=== PATIENT | female | born 1970 | race Caucasian/White ===

== ENCOUNTER 2018-01-04 11:11 | Outpatient (CLI) | payer BC | END 2018-01-04 11:12 | disposition home or self-care (01) | LOC: BICMAMMO 11:11 | PROVIDERS: ATTEND Student in an Organized Health Care Education/Training Program | DX: Z12.31 Encounter for screening mammogram for malignant neoplasm of breast (principal) | CPT/HCPCS: 77063; 77067 ==

== ENCOUNTER 2019-04-07 08:48 | Outpatient (CLI) | payer BC ==
--- NOTE | 2019-04-07 09:53 | MMO ---
Right Breast MAMMO Unilat Diag DDI RT+ADRIANE. CLINICAL HISTORY: Patient is 49 years old and is seen for diagnostic exam. The patient has no family history of breast cancer. The patient has no personal history of cancer. VIEWS: The views performed were: right craniocaudal with tomosynthesis; right mediolateral oblique with tomosynthesis; and right mediolateral with tomosynthesis. FILMS COMPARED: The present examination has been compared to prior imaging studies performed at [facility] on 03/18/2019, and at [facility] on 01/01/2017, 01/04/2018 and 04/07/2019. This study has been interpreted with the assistance of computer-aided detection. MAMMOGRAM FINDINGS: The breast is heterogeneously dense, which could obscure a lesion on mammography. There is an equal density, oval mass with circumscribed margins seen in the right breast at 9 o'clock. The mass was shown to be a cyst on ultrasound. The addional abnormality in the right breast at screening does not persist. There are no suspicious masses, suspicious calcifications, or new areas of architectural distortion. IMPRESSION: THERE IS NO MAMMOGRAPHIC EVIDENCE OF MALIGNANCY. A ROUTINE FOLLOW-UP MAMMOGRAM IN 1 YEAR IS RECOMMENDED. THE RESULTS OF THIS EXAM WERE SENT TO THE PATIENT. ACR BI-RADS Category 2 - Benign finding MAMMOGRAPHY NOTE: 1. A negative mammogram report should not delay a biopsy if a dominant of clinically suspicious mass is present. 2. Approximately 10% to 15% of breast cancers are not detected by mammography. 3. Adenosis and dense breasts may obscure an underlying neoplasm. Reported by: JUAN RAMON FRIEDMAN MD Electonically Signed: [id number]
--- NOTE | 2019-04-07 10:13 | ULT ---
LIMITED RIGHT BREAST ULTRASOUND: DATE: 04/07/2019. PROVIDED CLINICAL HISTORY: Abnormal mammogram. FINDINGS: Limited sonographic interrogation was performed of the right breast at the 9 o'clock position demonst rating a simple cyst corresponding to the mammogram finding. IMPRESSION: BIRADS category 2 - benign findings. Annual screening mammography is recommended. POS: OFF
--- NOTE | 2019-04-07 10:23 | RAD ---
LEFT KNEE TWO VIEWS: HISTORY: Unilateral primary osteoarthritis left knee. FINDINGS: Moderate degenerative changes are seen, most prominent in the lateral tibiofemoral compartment and th e patellofemoral compartment. No fracture, dislocation or bony destruction is identified. No joint ef fusion is seen. IMPRESSION: Left knee osteoarthritis. POS: TPC
== END 2019-04-07 08:49 | disposition home or self-care (01) ==
LOC: BICMAMMO 08:48
PROVIDERS: ATTEND Student in an Organized Health Care Education/Training Program
DX: N63.10 Unspecified lump in the right breast, unspecified quadrant (principal); M17.12 Unilateral primary osteoarthritis, left knee
CPT/HCPCS: G0279

== ENCOUNTER 2019-06-06 14:13 | Outpatient (CLI) | payer BC ==
--- NOTE | 2019-06-06 15:14 | BD ---
DEXA BONE DENSITY SCAN: DATE: 06/06/2019. HISTORY: Postmenopausal female undergoing screening for osteoporosis. Lumbar Spine: BMD (g/cm2) L1 1.173 T-Score: 1.7 L2 1.213 T-Score: 1.7 L3 1.331 T-Score: 2.2 L4 1.472 T-Score: 3.7 L1-L4 1.309 T-Score: 2.4 Femoral Neck: 0.902 T-Score: 0.5 Total Femur: 1.204 T-Score: 2.1 The FRAX-WHO fracture risk assessment tool reports a 10-year fracture risk in an untreated patient at 4% for major osteoporotic fracture and less than 0.1% for hip fracture. IMPRESSION: Normal bone mineral density examination. Transcribed Date/Time: 06/06/2019 3:22 PM
== END 2019-06-06 14:14 | disposition home or self-care (01) ==
LOC: BICMAMMO 14:13
PROVIDERS: ATTEND Internal Medicine Rheumatology
DX: M81.0 Age-related osteoporosis without current pathological fracture (principal)
CPT/HCPCS: 77080

== ENCOUNTER 2019-10-03 10:21 | Day surgery (SDC) | payer BC ==
[2019-09-30 12:43] VITALS: BMI 40.3
[2019-09-30 14:10] LABS: Hemoglobin 13.4 g/dL (12.0-16.0); Mean Corpuscular HGB CONC 32.8 g/dL (32.0-36.0); Mean Corpuscular Hemoglobin 30.1 pg (27.0-31.0); Mean Corpuscular Volume 91.7 fL (78.0-98.0); Mean Platelet Volume 8.4 fL (7.4-10.4); Platelet Count 234 thou/uL (130-400); RBC Distribution Width 11.4 % (11.5-14.5); Red Blood Cell (RBC) Count 4.45 mill/uL (4.20-5.40); White Blood Cell (WBC) Count 5.9 thou/uL (4.8-10.8)
[2019-09-30 17:23] LABS: SARS-CoV-2 MS2 Positive; SARS-CoV-2 N Gene Negative; SARS-CoV-2 S Gene Negative; SARS-CoV-2 orf1ab Negative
[~2019-10-03 10:21] MED LIST: Dexamethasone 20 MG/5 ML VIAL ONE; Lidocaine 1% PF 5 ML VIAL ONE; Metoclopramide HCl 10 MG/2 ML VIAL ONE; Ondansetron PF 4 MG/2 ML Vial ONE; PROPOFOL 200 MG/20 ML VIAL ONE; Rocuronium Bromide 10 MG/ML (10ML VIAL) ONE
[2019-10-03] MEDS ORDERED: Gabapentin 300 MG CAP ONE (10:31)
[2019-10-03] MEDS ORDERED: CeleCOXIB 100 MG CAP ONE (10:31)
[2019-10-03] MEDS ORDERED: Famotidine/PF 20 mg/2ml Vial ONE ×2 (10:31→11:50)
[2019-10-03] MEDS ORDERED: Fentanyl 100 MCG/2 ML VIAL ONE ×2 (11:50→14:11)
[2019-10-03] MEDS ORDERED: Lidocaine 1% w/Epinephrine 1:100K 20 ML VIAL ONE (12:00)
[2019-10-03] MEDS ORDERED: SUGAMMADEX SODIUM 200 MG/2 ML VIAL ONE (12:07)
[2019-10-03] MEDS ORDERED: HYDROcodone/Acetaminophen 5/325 mg Tablet ONE (16:28)
--- NOTE | 2019-10-03 21:00 | OP ---
DATE OF PROCEDURE: 10/03/2019 PREOPERATIVE DIAGNOSES: 1. Stress urinary incontinence. 2. Rectocele. POSTOPERATIVE DIAGNOSES: 1. Stress urinary incontinence. 2. Rectocele. PROCEDURE: [employer] Advantage fit midurethral sling, cystoscopy, and posterior colpoperineorrhaphy. ANESTHESIA: General endotracheal. DRIVER EDUCATION ROAD INSTRUCTOR SURGEON: Belinda Garza PA-C ESTIMATED BLOOD LOSS: 20 mL. IVF: 1500 mL crystalloid. URINE OUTPUT: 300 mL clear urine. PATHOLOGY: None. COMPLICATIONS: None. DRAINS: Gabriel catheter. FINDINGS: On cystoscope, normal bladder mucosa. No masses, lesions, lacerations, or perforations from the sling. Bilateral ureteral efflux that was vigorous. On rectal exam, no suture material was contained in the rectum after a posterior repair. DESCRIPTION OF PROCEDURE: Patient was taken to the operating room, where general anesthesia was obtained without difficulty. Patient was prepped and draped in a sterile fashion in dorsal lithotomy position. A weighted speculum was placed in the vagina. The Gabriel catheter was placed in the bladder. The midurethral space was grasped with 2 Allis in AP diameter. This anterior vaginal mucosa was infiltrated with 1% lidocaine with epi. A skin incision was made on the anterior vagina overlying the mid urethra. The mid urethral and subpubic spaces were then dissected out bilaterally with the Metzenbaum. The areas on the pubic bone where the exit sites would be for the needle were then marked. These two areas were infiltrated with 30 mL of sterile saline using a spinal needle as a means to hydrodissect the bladder away from the retropubic space. The guidewire was then placed into the Gabriel catheter and the bladder was deviated to the right. The [employer] Advantage fit sling was opened and the left side was placed first ensuring the needle was perpendicular and aiming towards the patient's shoulder. The same procedure was performed on the right. The sling was grasped with two Melissa clamps at this exit site of the pubic bone. The Gabriel catheter was removed and a 70-degree cystoscope was then placed into the bladder and distention occurred. The bladder was within normal limits. There was no blue material within the bladder along the path of the sling and the ureters were effluxing bilaterally. The cystoscope was removed. The Gabriel catheter was placed back into the bladder and the bladder was drained. This sling was then tightened. The tab was cut off with the midpoint of the sling and the sleeves over the sling were then removed and Murphy scissors were used to ensure not to overtighten the sling. The anterior vaginal incision was then closed with a 0 Vicryl in a running fashion. There was some bleeding from the retropubic space that was not significant. However, as a means to tamponade, the Gabriel catheter balloon was inflated with 10 additional mL to allow to put pressure on the retropubic space. The hymen was then grasped posteriorly at 4 and 8, and pulled taut. The posterior vaginal mucosa was infiltrated with 1% lidocaine with epi. The Metzenbaums were used to make an incision at the posterior fourchette and the vaginal mucosa was undermined with the Metzenbaums and incised with the Metzenbaums all the way up to the top of the vagina. The rectovaginal fascia was then dissected off the vaginal mucosa using the Metzenbaums as well as a fluffed-out Ray-Toi bilaterally. Hemostasis was achieved with the Bovie. The rectovaginal fascia was then plicated with 0 Vicryl [id number] noting that the posterior vaginal wall was well reinforced. Rectal exam was then performed and noted to have no suture material. At that time, the perineum was incised with the Bovie and the skin was removed overlying the superficial transverse perineal muscles. These were then dissected out bilaterally with the Metzenbaums and then plicated in the midline with the U-stitch x2. The skin of the posterior vaginal wall was then closed with a 0 Vicryl in a running fashion with excellent hemostasis noted. The moistened Kerlix was then placed as a vaginal packing. All instruments removed out of angina. Patient tolerated the procedure well. Sponge and needle counts correct x2. Patient was taken to recovery room in stable condition. Patient received Ancef prior to the procedure. Job ID: [id number]
== END 2019-10-03 18:05 | disposition home or self-care (01) ==
LOC: SDC 10:21
PROVIDERS: ATTEND Student in an Organized Health Care Education/Training Program
PROC: 0TSD0ZZ Reposition Urethra, Open Approach (ICD-10-PCS; principal; 2019-10-03)
PROC: 0JQC0ZZ Repair Pelvic Region Subcutaneous Tissue and Fascia, Open Approach (ICD-10-PCS; principal; 2019-10-03)
PROC: 0HQ9XZZ Repair Perineum Skin, External Approach (ICD-10-PCS; principal; 2019-10-03)
DX: N39.3 Stress incontinence (female) (male) (principal); N81.6 Rectocele; M06.9 Rheumatoid arthritis, unspecified; Z79.52 Long term (current) use of systemic steroids; Z79.899 Other long term (current) drug therapy
CPT/HCPCS: 36415; 85027; 86850; 86900; 86901; 87635; C1781; J0690; J1100; J2001; J2405; J2704; J2765; J3010; S0028; U0003

== ENCOUNTER 2020-03-23 14:37 | Outpatient (CLI) | payer BC ==
--- NOTE | 2020-03-23 15:12 | MMO ---
Bilateral MAMMO Bilat Screen DDI+ADRIANE. CLINICAL HISTORY: Patient is 50 years old and is seen for screening. The patient has no family history of breast cancer. The patient has no personal history of cancer. VIEWS: The views performed were: bilateral craniocaudal with tomosynthesis; bilateral mediolateral oblique with tomosynthesis; and right exaggerated craniocaudal. FILMS COMPARED: The present examination has been compared to prior imaging studies performed at [facility] on 03/18/2019, and at [facility] on 01/04/2018 and 04/07/2019. This study has been interpreted with the assistance of computer-aided detection. MAMMOGRAM FINDINGS: The breasts are heterogeneously dense, which could obscure a lesion on mammography. There are stable benign appearing calcifications seen in both breasts. Nodularity is stable. There are no suspicious masses, suspicious calcifications, or new areas of architectural distortion. IMPRESSION: THERE IS NO MAMMOGRAPHIC EVIDENCE OF MALIGNANCY. A ROUTINE FOLLOW-UP MAMMOGRAM IN 1 YEAR IS RECOMMENDED. THE RESULTS OF THIS EXAM WERE SENT TO THE PATIENT. ACR BI-RADS Category 2 - Benign finding MAMMOGRAPHY NOTE: 1. A negative mammogram report should not delay a biopsy if a dominant of clinically suspicious mass is present. 2. Approximately 10% to 15% of breast cancers are not detected by mammography. 3. Adenosis and dense breasts may obscure an underlying neoplasm. Reported by: JUAN RAMON FRIEDMAN MD Electonically Signed: [id number]
== END 2020-03-23 14:38 | disposition home or self-care (01) ==
LOC: BICMAMMO 14:37
PROVIDERS: ATTEND Student in an Organized Health Care Education/Training Program
DX: Z12.31 Encounter for screening mammogram for malignant neoplasm of breast (principal)
CPT/HCPCS: 77063; 77067